=== PATIENT | male | born 1985 | race Caucasian/White ===

== ENCOUNTER 2017-08-27 18:37 | Emergency (ER) | payer BC ==
[~2017-08-27] VITALS: Ht 172.7 cm; Wt 82.0 kg
[2017-08-27] MEDS ORDERED: MORPHINE SULFATE 4 MG/ML CPJ (NOT FOR IM USE) IV ONE (20:30)
[2017-08-27] MEDS ORDERED: ONDANSETRON HCL 4MG/2ML VIAL IV ONE (21:30)
[2017-08-27] MEDS ORDERED: SODIUM CHLORIDE 0.9% 1,000 ML IV ONE (22:45)
[2017-08-28 01:25] VITALS: BP 109/77
== END 2017-08-28 01:52 | disposition short-term general hospital (02) ==
LOC: ER 19:12
DX: S02.2XXA Fracture of nasal bones, initial encounter for closed fracture (principal); S02.31XA Fracture of orbital floor, right side, initial encounter for closed fracture; S02.19XA Other fracture of base of skull, initial encounter for closed fracture; V49.88XA Car occupant (driver) (passenger) injured in other specified transport accidents, initial encounter; Y93.89 Activity, other specified; Y92.89 Other specified places as the place of occurrence of the external cause; Y99.8 Other external cause status
CPT/HCPCS: 70450; 70486; 72125; 96361; 96374; 96375; 99285; J2270; J2405; J7030; X7700; Z7610

== ENCOUNTER 2022-11-23 20:33 | Emergency (ER) | payer BC ==
[~2022-11-23] VITALS: Ht 167.6 cm; Wt 88.4 kg
[2022-11-23 20:46] VITALS: BP 112/77
[2022-11-23 21:05] LABS: BASOPHILS % 0.6 % (0.0-2.0); EOSINOPHILS % 3.4 % (0.0-5.0); HEMOGLOBIN. 14.9 g/dL (14.0-18.0); LYMPHOCYTES % 24.6 % (20.0-50.0); MEAN CORPUSCULAR HEMOGLOBIN 29.4 pg (28.0-32.0); MEAN CORPUSCULAR VOLUME 84.6 fL (80.0-94.0); MEAN PLATELET VOLUME 10.5 fl (7.4-10.4); MONOCYTES % 6.4 % (2.0-8.0); PLATELET 209 x1000/uL (130-400); RED BLOOD CELL COUNT 5.08 mill/uL (4.7-6.1); RED CELL DISTRIBUTION WIDTH 13.8 % (11.6-14.6)
[2022-11-23 21:12] LABS: CHLORIDE 107 mEq/L (98-107)
[2022-11-23] MEDS ORDERED: AMOX1TAB16 MT (22:34)
== END 2022-11-23 22:56 | disposition home or self-care (01) ==
LOC: ER 20:33
DX: H66.93 Otitis media, unspecified, bilateral (principal)
CPT/HCPCS: 36415; 71045; 80053; 84484; 85025; 93005; 99285